=== PATIENT | female | born 1955 | race Caucasian/White ===

== ENCOUNTER → 2018-06-15 | Outpatient (CLI) | payer OTHER ==
[~2018-06-15] MED LIST: AMBIEN 10MG10 MG PO; AMOXICILLIN 50500 MG PO; ASTELIN NASAL S34 ML NS; ASTELIN137 MCG/Ac NS; CALCIUM 600600 M2 PO; CRANBERRY1 CAP PO; FERROUS SU325 MG/TAB PO; FLAX SEED OIL1000 MG PO; FLONASE NASAL S16 GM NS; FOLIC ACID 40400 MCG PO; IRON FERROUS S325 MG PO; MULTIPLE VITAMI1 CAP PO; NORCO 325 MG-51 TAB PO; SINGULAIR 110 MG/TAB PO; SINGULAIR10 MG PO; ULTRAM 50MG TAB50 MG PO; VITAMIN C PUR1000 MG PO; XYAL5 MG PO; XYZAL5 MG PO
== END ==
LOC: MC.RAD 08:40
DX: Z12.31 Encounter for screening mammogram for malignant neoplasm of breast (principal); Z85.3 Personal history of malignant neoplasm of breast

== ENCOUNTER → 2019-01-21 | Outpatient (CLI) | payer BC ==
[2019-01-21 16:59] LABS: HIV 1/2 Antibodies Non-Reactive; HIV-1p24 Antigen Non-Reactive
== END ==
LOC: COL.LAB 15:15
PROVIDERS: Orthopaedic Surgery
DX: Z01.812 Encounter for preprocedural laboratory examination (principal)

== ENCOUNTER → 2019-07-26 | Outpatient (CLI) | payer BC | LOC: MC.RAD 09:15 | DX: Z12.31 Encounter for screening mammogram for malignant neoplasm of breast (principal); Z85.3 Personal history of malignant neoplasm of breast ==

== ENCOUNTER 2020-05-25 13:25 | Observation (INO) | payer BC ==
[~2020-05-25] VITALS: Ht 167.6 cm; Wt 70.1 kg
[2020-05-25 13:47] LABS: BASO # 0.1 (0.0-0.2); BASO % 0.9 % (0.0-2.0); EOS # 0.1 (0.0-0.7); EOS % 1.8 % (0-4.0); GRAN # 5.6 (1.4-6.5); GRAN % 73.1 % (42.2-75.2); HEMATOCRIT 38.9 % (37.0-47.0); HEMOGLOBIN 12.5 g/dl (12.5-16.0); LYMPH # 1.3 (1.2-3.4); MEAN CELL VOLUME 89 fl (80.0-100.0); MEAN CORPUSCULAR HEMOGLOBIN 29 pg (27.0-31.0); MEAN CORPUSCULAR HGB CONC 32 g/dl (33.0-37.0); MEAN PLATELET VOLUME 8.5 fl (7.4-10.4); MONO # 0.5 (0.1-0.6); MONO % 6.8 % (1.7-9.3); PLATELET COUNT 316 K/mm3 (130-400); RED BLOOD COUNT 4.39 M/mm3 (4.10-5.30); REDCELL DISTRIBUTION WIDTH-CV 13.4 % (11.5-14.5)
[2020-05-25 14:23] LABS: ALBUMIN 4.4 gm/dL (3.5-5.0); BILIRUBIN,TOTAL 0.7 mg/dL (0.0-1.0); CALCIUM 9.4 mg/dL (8.4-10.2); CREATININE, serum 0.68 (0.52-1.25); TOTAL PROTEIN 7.7 gm/dL (6.4-8.2)
[2020-05-25 14:33] LABS: TROPONIN-I 0.014 ng/mL (0.000-0.035)
[2020-05-25 15:33] LABS: COLLECTION METHOD CLEAN CATCH
[2020-05-25 15:54] LABS: MUCOUS Present /lpf; PH 7 (5-8); SQUAMOUS EPITHELIAL 0-2 /hpf; URINE APPEARANCE Cloudy; URINE BACTERIA Rare /hpf; URINE BILIRUBIN Negative (NEGATIVE); URINE BLOOD Negative (NEGATIVE); URINE COLOR Yellow; URINE GLUCOSE Negative (NEGATIVE); URINE KETONE Negative (NEGATIVE); URINE LEUKOCYTE ESTERASE 1+ (NEGATIVE); URINE NITRATE Negative (NEGATIVE); URINE PROTEIN(semi-quant) Negative (NEGATIVE); URINE UROBILINOGEN Negative (NEGATIVE)
--- NOTE | 2020-05-25 18:30 | NUR ---
Patient arrived to floor from ED via bed. Patient is alert and oriented, answers questions appropriately. Patient oriented to room, denies pain or needs at this time, call light within reach.
[2020-05-25 19:50] VITALS: BP 126/70; PULSE 72; TEMP 98.5
--- NOTE | 2020-05-25 20:00 | NUR ---
Received report from YAJAIRA Wong. Pt was lying in bed watch television. Pt did request to have something to eat. I informed pt that I would check to see if she had diet orders. Pt was a general diet and she had a tray delivered to her. Pt stated that she did not have pain at this time. Pt lungs sounds were clear in all lobes. Pt heart sounds were normal S1 and S2 sounds. Pt has her call light within reach.
[2020-05-26 00:19] VITALS: BP 105/61; PULSE 66; TEMP 98.1
--- NOTE | 2020-05-26 01:20 | NUR ---
Pt currently lying in bed. Pt has no concerns at this time. Pt was unsure about a lot of her medications but was able to obtain a copy of her medication list. Pt has her call light within reach and her bed is in lowest position. Pt has bed alarm on for safety.
--- NOTE | 2020-05-26 02:45 | NUR ---
Pt called out and requested to go to the bathroom. Pt ambulated well with no signs of dizziness. Pt was a stand by assistance. I did explain to the pt that I just wanted to be keep a check on her due to her being on neuro checks and close monitoring. Pt was fine with this. Pt is now back in bed and has her call light within reach.
[2020-05-26 04:00] VITALS: BP 110/60; PULSE 64; TEMP 97.9
--- NOTE | 2020-05-26 07:08 | NUR ---
Reported off to YAJAIRA Gonzalez. Pt has been NPO. Pt has her call light within reach and her bed is in lowest position. Pt neuro checks and stroke assessments have been good all night. She was informed about her MRI.
[2020-05-26 07:38] LABS: HEMATOCRIT 38.2 % (37.0-47.0); HEMOGLOBIN 12.6 g/dl (12.5-16.0); MEAN CELL VOLUME 88 fl (80.0-100.0); MEAN CORPUSCULAR HEMOGLOBIN 29 pg (27.0-31.0); MEAN CORPUSCULAR HGB CONC 33 g/dl (33.0-37.0); MEAN PLATELET VOLUME 8.6 fl (7.4-10.4); PLATELET COUNT 268 K/mm3 (130-400); RED BLOOD COUNT 4.33 M/mm3 (4.10-5.30); REDCELL DISTRIBUTION WIDTH-CV 13.4 % (11.5-14.5)
[2020-05-26 07:50] LABS: CALCIUM 9.2 mg/dL (8.4-10.2); CHOLESTEROL RISK RATIO 2.3; CREATININE, serum 0.6 (0.52-1.25); MAGNESIUM 2.2 mg/dL (1.6-2.3); POTASSIUM 3.7 mmol/L (3.4-5.0)
[2020-05-26 08:01] VITALS: BP 97/59; PULSE 65; TEMP 97.9
[2020-05-26 08:20] LABS: TSH w REFLEX 1.84 uIU/mL (0.465-4.680)
--- NOTE | 2020-05-26 10:02 | NUR ---
Dr Brennan here to see patient.
--- NOTE | 2020-05-26 10:20 | NUR ---
Patient alert and oriented, answers questions appropriately. See assessment. Neuro/stroke assessments completed. No c/o at this time.
[2020-05-26 10:21] LABS: BAND 5 % (0-10); EOSINOPHIL 8 % (0-4); LYMPHOCYTE 35 % (20.0-51.0); NEUTROPHILS 44 % (42.0-75.2); NUCLEATED RED BLOOD CELL 1 (0-6); PLATELET ESTIMATE NORMAL (NORMAL)
--- NOTE | 2020-05-26 11:13 | NUR ---
Marketing Coordinator met with patient to discuss discharge planning. Patient lives in [place] with her , Clay (ph#[phone]) and sees Dr. Puckett for primary care. Patient has medications delivered to her home by [facility]. Patient does not use any DME and reports independence with ADLS. Patient does not have [facility] but was interested in completing the form. PADDY assisted patient is completing [employer] form and she designated her , Clay and her daughter, Arina. PADDY and RNKae FRANCO signed as witnesses. PADDY provided original and copies to patient then placed a copy in patient's chart. Patient plans to return home at discharge. No needs identified at this time.
[2020-05-26 12:47] VITALS: BP 133/73; PULSE 78; TEMP 98.4
[2020-05-26 16:40] VITALS: BP 115/73; PULSE 70; TEMP 97.4
--- NOTE | 2020-05-26 18:04 | NUR ---
Dr Sinclair here to see patient.
--- NOTE | 2020-05-26 18:51 | NUR ---
Discharge instructions reviewed with patient, verbalized understanding. Discharged ambulatory to auto/home with spouse at 1850.
== END 2020-05-26 18:50 | disposition home or self-care (01) ==
LOC: COL.ER 13:25 → SURG 15:23
PROVIDERS: Emergency Medicine; Internal Medicine; Student in an Organized Health Care Education/Training Program; ADMIT Hospitalist
DX: G45.4 Transient global amnesia (principal); J45.909 Unspecified asthma, uncomplicated; E87.1 Hypo-osmolality and hyponatremia; Z88.1 Allergy status to other antibiotic agents; Z88.8 Allergy status to other drugs, medicaments and biological substances; Z79.51 Long term (current) use of inhaled steroids; Z85.3 Personal history of malignant neoplasm of breast; Z90.10 Acquired absence of unspecified breast and nipple; Z96.652 Presence of left artificial knee joint; Z87.891 Personal history of nicotine dependence; Z80.1 Family history of malignant neoplasm of trachea, bronchus and lung; I08.1 Rheumatic disorders of both mitral and tricuspid valves
CPT/HCPCS: 99232-AI; A9585; G0378; J1650; Q9967

== ENCOUNTER → 2020-07-28 | Outpatient (CLI) | payer BC | LOC: MC.RAD 14:32 | DX: Z12.31 Encounter for screening mammogram for malignant neoplasm of breast (principal); Z13.820 Encounter for screening for osteoporosis; Z90.12 Acquired absence of left breast and nipple ==

== ENCOUNTER → 2021-09-29 | Outpatient (CLI) | payer MEDICARE, OTHER | LOC: MC.RAD 08-17 13:45 | DX: Z12.31 Encounter for screening mammogram for malignant neoplasm of breast (principal); Z90.12 Acquired absence of left breast and nipple ==

== ENCOUNTER → 2023-03-14 | Outpatient (CLI) | payer MEDICARE, OTHER | LOC: MC.RAD 10-27 13:45 | DX: Z12.31 Encounter for screening mammogram for malignant neoplasm of breast (principal); N64.89 Other specified disorders of breast ==

== ENCOUNTER → 2023-03-17 | Outpatient (CLI) | payer MEDICARE, OTHER | LOC: MC.RAD 12:57 | DX: R92.2 Inconclusive mammogram (principal) ==

== ENCOUNTER → 2024-03-26 | Outpatient (CLI) | payer MEDICARE | LOC: MC.RAD 14:27 | DX: Z12.31 Encounter for screening mammogram for malignant neoplasm of breast (principal) ==